=== PATIENT | female | born 1995 | race Caucasian/White ===

== ENCOUNTER 2016-08-20 23:25 | Emergency (ER) | payer OTHER ==
[~2016-08-20] VITALS: Ht 160 cm; Wt 74.3 kg
[~2016-08-20 23:25] MED LIST: BACTRIM,SEPT1 TABLET PO; BENTYL10 MG PO; BUPROPION XL150 MG PO; CIPRO500 MG PO; FLEXERIL10 MG PO; FLOXIN OTIC SOLN5 ML RIGHT EAR; IBUPROFEN800 MG PO; KEFLEX500 MG PO; MOBIC7.5 MG PO; NAPROSYN500 MG PO; PERCOCET 5/31 TABLET PO; PRENATAL TABLE1 EAC3 PO; PROZAC10 MG PO; ROBITUSSIN AC,T10 ML PO; TRAMADOL HCL50 MG PO; ZOFRAN4 MG PO
[2016-08-21] MEDS ORDERED: NAPROSYN500 MG PO (00:13)
[2016-08-21 01:09] VITALS: BP 121/77
== END 2016-08-21 01:11 | disposition home or self-care (01) ==
LOC: EME 23:25 → RME 23:25
PROC: 2W3DX1Z Immobilization of Left Lower Arm using Splint (ICD-10-PCS; principal; 2016-08-20)
DX: S52.502A Unspecified fracture of the lower end of left radius, initial encounter for closed fracture (principal); W01.0XXA Fall on same level from slipping, tripping and stumbling without subsequent striking against object, initial encounter; Y92.34 Swimming pool (public) as the place of occurrence of the external cause
CPT/HCPCS: 73110; 99281; 99283

== ENCOUNTER 2017-03-12 22:49 | Emergency (ER) | payer OTHER ==
[~2017-03-12] VITALS: Ht 162.6 cm; Wt 75.8 kg
[2017-03-13] MEDS ORDERED: FLONASE16 G1 BOTH NARES (00:32)
[2017-03-13] MEDS ORDERED: ZITHROMAX Z-PA250 MG PO (00:32)
[2017-03-13] MEDS ORDERED: MOTRIN600 MG PO (00:33)
[2017-03-13 00:38] VITALS: BP 130/77
== END 2017-03-13 00:40 | disposition home or self-care (01) ==
LOC: EME 22:49
DX: J01.90 Acute sinusitis, unspecified (principal); J02.9 Acute pharyngitis, unspecified; H92.09 Otalgia, unspecified ear
CPT/HCPCS: 99281; 99284

== ENCOUNTER 2017-06-03 22:02 | Emergency (ER) | payer OTHER ==
[~2017-06-03] VITALS: Ht 162.6 cm; Wt 79.8 kg
[~2017-06-03 22:02] MED LIST changes: +FLONASE16 G1 BOTH NARES; +MOTRIN600 MG PO; +ZITHROMAX Z-PA250 MG PO
[2017-06-03 22:44] LABS: HEMATOCRIT 37.2 % (36.0-46.0); HEMOGLOBIN 12.8 G/DL (11.9-15.5); MCH 29.9 PG (29.0-34.0); MCHC 34.4 G/DL (30.0-36.0); MCV 86.9 FL (83-99); PLATELET COUNT 179 K/uL (156-360); RBC DIS.WIDTH-CV 12.4 % (11.8-14.6); RBC DIS.WIDTH-SD 39.4 % (39-53); RED BLOOD COUNT 4.28 M/uL (3.80-5.20); WHITE BLOOD COUNT 4.6 K/uL (4.1-10.2)
[2017-06-03 22:52] LABS: CHLORIDE 105 mEq/L (99-109); POTASSIUM 3.7 mEq/L (3.7-5.4); SODIUM 143 mEq/L (136-147)
[2017-06-03 22:54] LABS: GLUCOSE 111 mg/dL (70-99)
[2017-06-03 22:58] LABS: CREATININE 0.8 mg/dL (0.6-1.3); GFR ESTIMATE (CALCULATED) > 59 mL/min/
[2017-06-03 22:59] LABS: UREA NITROGEN (BUN) 7 mg/dL (9-23)
[2017-06-03] MEDS ORDERED: HYCODAN SYRUP480 ML PO (23:35)
[2017-06-03] MEDS ORDERED: VENTOLIN HFA18 GM IH (23:35)
[2017-06-03] MEDS ORDERED: PREDNISONE50 MG PO (23:35)
[2017-06-04 00:55] VITALS: BP 117/64
== END 2017-06-04 00:56 | disposition home or self-care (01) ==
LOC: EME 22:02
PROVIDERS: Emergency Medicine
DX: J10.1 Influenza due to other identified influenza virus with other respiratory manifestations (principal); J20.9 Acute bronchitis, unspecified; F32.9 Major depressive disorder, single episode, unspecified; Z91.040 Latex allergy status
CPT/HCPCS: 71046; 80048; 85027; 87502; 94640